=== PATIENT | male | born 1940 | race Caucasian/White ===

== ENCOUNTER 2018-04-11 14:05 | Emergency (ER) | payer MEDICARE, OTHER, SELFPAY ==
[2018-04-11 14:06] VITALS: BP 131/77; PULSE 55; RESP 16; TEMP 36.6; O2SAT 98; BMI 28.1
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
[2018-04-11 15:38] VITALS: RESP 16
== END 2018-04-11 15:44 | disposition home or self-care (01) ==
PROVIDERS: Emergency Provider Emergency Medicine
DX: S39.012A Strain of muscle, fascia and tendon of lower back, initial encounter (principal); S60.222A Contusion of left hand, initial encounter; S60.221A Contusion of right hand, initial encounter; W22.8XXA Striking against or struck by other objects, initial encounter; X50.1XXA Overexertion from prolonged static or awkward postures, initial encounter; Y93.9 Activity, unspecified; Y92.9 Unspecified place or not applicable
CPT/HCPCS: 72100; 73130; 99282